=== PATIENT | male | born 1945 | race Caucasian/White ===

== ENCOUNTER 2021-05-29 17:54 | Emergency (ER) | payer MEDICARE, OTHER ==
[2021-05-29 19:38] LABS: BASOPHIL 0.2 % (0-2); EOSINOPHIL 0.1 % (0-7); HCT 49.4 % (42.0-52.0); HGB 16.4 g/dl (13.2-18.0); LYMPHOCYTE 4.2 % (15-48); MCH 25.7 pg (25.0-31.0); MCHC 33.2 g/dL (32.0-36.0); MCV 77.4 fL (78.0-100.0); MONOCYTE 5.4 % (0-12); MPV 10.4 fL (6.0-9.5); NEUTROPHIL 89.3 % (41-80); NRBC 0; PLT 208 K/uL (150-400); RBC 6.38 M/uL (4.70-6.00); WBC 16.9 K/uL (4.0-10.5)
[2021-05-29 20:02] LABS: ALBUMIN 3.4 g/dL (3.4-5.0); BILIRUBIN - TOTAL 0.4 mg/dL (0.2-1.0); BUN/CREAT RATIO (CALC) 43.2 RATIO; CREATININE 0.88 mg/dL (0.67-1.17); POTASSIUM 4.3 mmol/L (3.5-5.1); TOTAL PROTEIN 7.4 g/dL (6.4-8.2)
[2021-05-29 20:03] LABS: LACTIC ACID 2.5 mmol/L (0.4-1.9)
[2021-05-29 20:15] LABS: CORONAVIRUS 2019 SARS-COV-2 NEGATIVE (NEGATIVE); INFLUENZA A NAA NEGATIVE (NEGATIVE)
[2021-05-29 21:56] LABS: BILIRUBIN NEGATIVE (NEGATIVE); BLOOD NEGATIVE Ery/uL (NEGATIVE); CLARITY CLEAR (CLEAR); COLOR YELLOW (YELLOW); GLUCOSE (U) 3+ mg/dL (NORMAL); LEUKOCYTES NEGATIVE Leu/uL (NEGATIVE); NITRITE NEGATIVE (NEGATIVE); PROTEIN NEGATIVE (NEGATIVE); SPECIFIC GRAVITY 1.025 (1.001-1.030); UROBILINOGEN 0.2 mg/dL (0.2-1.0); pH 5.5 (5.0-9.0)
[2021-05-29] MEDS ORDERED: PERCOCET 5-3251 EACH PO (23:45)
== END 2021-05-29 23:59 | disposition home or self-care (01) ==
LOC: FER 17:54
PROVIDERS: Nurse Practitioner Family
DX: E11.65 Type 2 diabetes mellitus with hyperglycemia (principal); M25.552 Pain in left hip; M25.551 Pain in right hip; J44.9 Chronic obstructive pulmonary disease, unspecified; Z20.822 Contact with and (suspected) exposure to COVID-19; Z79.84 Long term (current) use of oral hypoglycemic drugs; Z79.82 Long term (current) use of aspirin
CPT/HCPCS: 36415; 70450; 71045; 72192; 80053; 81003; 82009; 83036; 83605; 83735; 84484; 85025; 87040; 93005; J7030; U0002